=== PATIENT | male | born 1995 | race Two or more races ===

== ENCOUNTER 2017-11-28 08:08 | Emergency (ER) | payer OTHER ==
[2017-11-28 08:21] VITALS: BP 114/76
[2017-11-28] MEDS ORDERED: DEXAMETHASONE 10 MG/ML VIAL PO STA (08:23)
[2017-11-28] MEDS ORDERED: LORATADINE 10 MG TABLET PO STA (08:24)
[2017-11-28] MEDS ORDERED: CHERRY SYRUP 10 ML UDC PO ONE (08:27)
--- NOTE | 2017-11-28 08:33 | ED Physician Documentation ---
History of Present Illness - Stated complaint Stated Complaint: UPPER BODY RASH - Chief complaint Chief Complaint: Wound - Additonal information Additional information: hx from pt healthy 22 male seen for ear pain sore thorat swollen nodes and txed with amox X 5 days which he finsihed two days ago now with rash to neck torso arms and palms no oral lesions or swelling no travel no camping no tick bites no new food lotion soap detergent etc has PND otherwise feels better Review of Systems Constitutional: denies: Fever, Chills Ears: denies: Ear pain Nose: reports: Other (PND) Throat: denies: Sore throat Respiratory: denies: Cough GI: denies: Abdominal Pain Skin: reports: Rash PD PAST MEDICAL HISTORY - Present Medications Home Medications: Ambulatory Orders Medication Instructions Recorded Confirmed Loratadine [Claritin] 10 mg PO DAILY PRN #5 tablet 11/28/17 - Allergies Allergies/Adverse Reactions: Allergies Allergy/AdvReac Type Severity Reaction Status Date / Time No Known Drug Allergies Allergy Verified 11/28/17 08:21 PD ED PE NORMAL - Vitals Vital signs reviewed: Yes - HEENT HEENT: Ears normal, Moist mucous membranes, Pharynx benign (PND but no erythema or exudate, no oral lesions) - Neck Neck: Supple, no meningeal sign. No: No adenopathy (ant no posterior) - Cardiac Cardiac: RRR - Respiratory Respiratory: No respiratory distress, Clear bilaterally - Abdomen Abdomen: Non tender, No organomegaly - Derm Derm: Other (macular papular rash to neck and torso mostly less to arms, some lacy discoloration to palms, no petecchiae purpura vesicles or target lesions) Results - Vitals Vitals: Vital Signs - 24 hr 11/28/17 08:18 Temperature 36.4 C L Heart Rate 84 Respiratory 15 Rate Blood Pressure 114/76 O2 Saturation 97 Oxygen O2 Source Room air PD MEDICAL DECISION MAKING - ED course ED course: does not look like spsis, benoit lalo meningitis lyme leading ddx is 1) viral exanthem 2) drug rxn 3) had mono and txed amox and has subs rash tx same - symptomatic - Sepsis Event Vital Signs: Vital Signs - 24 hr 11/28/17 08:18 Temperature 36.4 C L Heart Rate 84 Respiratory 15 Rate Blood Pressure 114/76 O2 Saturation 97 Oxygen O2 Source Room air Departure - Departure Disposition: 01 Home, Self Care Clinical Impression: Rash Condition: Good Follow-Up: [facility] [Provider Group] Prescriptions: Loratadine [Claritin] 10 mg PO DAILY PRN #5 tablet PRN Reason: rash Comments: This rash does not look dangerous. I can not be certain if it is a reaction to the amoxicillin or a viral exanthem. Either way the treatment is symptomatic. I would be cautious using penicillins in the future as you might be allergic - perhaps [facility] could refer you for allergy testing Take the claritin once a day until better Return if worse
== END 2017-11-28 08:49 | disposition home or self-care (01) ==
LOC: ED 08:08
DX: R21 Rash and other nonspecific skin eruption (principal)
CPT/HCPCS: 99282; 99283; A9270

== ENCOUNTER 2020-06-27 17:58 | Emergency (ER) | payer OTHER ==
--- NOTE | 2020-06-27 18:21 | ED Physician Documentation ---
PD HPI CHEST PAIN - Stated complaint Stated Complaint: SOA - Chief complaint Chief Complaint: Resp - History obtained from History obtained from: Patient - Additional information Additional information: For the last month has had intermittent shortness of breath, sometimes with exertion, sometimes at rest or just relaxing on the couch. It is associated with intermittent difficulty swallowing. Its not that it is painful to swallow or he feels like anything gets stuck, rather that he just feels like swallowing takes more work than it should. Today has had substernal chest pressure and it started while lifting weights. He has no personal medical history or pertinent family medical history. When queried as to the possibility of depression he denied. Review of Systems Ten Systems: 10 systems reviewed and negative Constitutional: reports: Fatigue (Very fatigued taking naps every day.). denies: Fever, Chills Ears: denies: Loss of hearing, Ear pain Throat: denies: Dental pain / toothache, Sore throat Cardiac: reports: Chest pain / pressure. denies: Palpitations, Pedal edema, Calf pain Respiratory: reports: Dyspnea. denies: Cough, Hemoptysis, Wheezing PD PAST MEDICAL HISTORY - Present Medications Home Medications: Ambulatory Orders Medication Instructions Recorded Confirmed Loratadine [Claritin] 10 mg PO DAILY PRN #5 tablet 11/28/17 - Allergies Allergies/Adverse Reactions: Allergies Allergy/AdvReac Type Severity Reaction Status Date / Time No Known Drug Allergies Allergy Verified 11/28/17 08:21 - Social History Does the pt smoke?: No Smoking Status: Never smoker PD ED PE NORMAL - Vitals Vital signs reviewed: Yes - General General: Alert and oriented X 3, No acute distress - HEENT HEENT: PERRL, EOMI - Neck Neck: Supple, no meningeal sign, No bony TTP - Cardiac Cardiac: RRR, No murmur - Respiratory Respiratory: No respiratory distress, Clear bilaterally - Abdomen Abdomen: Non tender - Extremities Extremities: No edema, No calf tenderness / cord - Neuro Neuro: Alert and oriented X 3, Normal speech Results - Vitals Vitals: Vital Signs - 24 hr 06/27/20 06/27/20 06/27/20 18:07 19:05 19:16 Temperature 36.9 C 37.1 C Heart Rate 83 69 67 Respiratory 18 12 12 Rate Blood Pressure 141/75 H 120/78 120/78 O2 Saturation 100 100 100 Oxygen O2 Source Room air - EKG (time done) 1839 Rate: Rate (enter#) (70) Rhythm: NSR [place]: Normal Intervals: Normal [place] QRS: Normal Ischemia: Normal ST segments - Labs Labs: Laboratory Tests 06/27/20 06/27/20 06/27/20 18:25 18:25 18:25 WBC 9.7 RBC 5.13 Hgb 16.5 Hct 48.6 MCV 94.7 H MCH 32.2 H MCHC 34.0 RDW 12.1 Plt Count 229 MPV 11.3 Neut # (Auto) 5.5 Lymph # (Auto) 3.1 [place] # (Auto) 0.8 Eos # (Auto) 0.1 Baso # (Auto) 0.1 Absolute Nucleated RBC 0.00 Nucleated RBC % 0.0 Sodium 136 Potassium 3.8 Chloride 98 L Carbon Dioxide 28 Anion Gap 10.0 BUN 18 Creatinine 1.1 Estimated GFR (MDRD) 82 L Glucose 92 Calcium 9.8 Total Bilirubin 0.6 AST 35 ALT 43 Alkaline Phosphatase 73 Troponin I High Sens 3.1 Total Protein 8.2 Albumin 5.2 Globulin 3.0 Albumin/Globulin Ratio 1.7 Lipase 31 - Rads (name of study) 2v chest Radiology: EMP read contemporaneously (NAD) PD MEDICAL DECISION MAKING - ED course ED course: 25-year-old gentleman with a month worth of difficulty swallowing on and off shortness of breath, sometimes exertional sometimes not, and chest pain today. Heart score 0. PERC negative. Frankly sounds GI in origin and discussed need for follow-up for possible upper endoscopy. Departure - Departure Disposition: 01 Home, Self Care Clinical Impression: Chest pain Qualifiers: Chest pain type: chest pain on breathing Qualified Code(s): R07.1 - Chest pain on breathing Condition: Good Record reviewed to determine appropriate education?: Yes Instructions: ED Chest Pain NonCardiac Follow-Up: [facility] [Provider Group] (Call for primary care) [facility] [Provider Group] (Call for primary care) Merlin Florez MD [Provider Admit Priv/Credential] - (Call for eval for upper endoscopy) Comments: Chest x-ray and lab work tonight are normal, there is no evidence of heart problem or active lung issue. I do think you need more testing done, the next test I think would be an upper endoscopy. For that you should follow-up with a surgeon or migratory worker, 1 is listed on this form. Also would be ideal to follow-up with your primary care physician for coordination of care. Return for new or worsening symptoms. Discharge Date/Time: 06/27/20 19:18
[2020-06-27 18:31] LABS: BASOPHILS # (AUTO) 0.1 10^3/uL (0.0-0.1); BASOPHILS % (AUTO) 0.8 %; EOSINOPHILS # (AUTO) 0.1 10^3/uL (0.0-0.7); EOSINOPHILS % (AUTO) 1.1 %; HCT - HEMATOCRIT 48.6 % (42.0-52.0); HGB - HEMOGLOBIN 16.5 g/dL (14.0-18.0); LYMPHOCYTES # (AUTO) 3.1 10^3/uL (1.5-3.5); LYMPHOCYTES % (AUTO) 32.1 %; MEAN CORPUSCULAR HEMOGLOBIN 32.2 pg (27.0-31.0); MEAN CORPUSCULAR VOLUME 94.7 fL (80.0-94.0); MEAN PLATELET VOLUME 11.3 fL (7.4-11.4); MONOCYTES # (AUTO) 0.8 10^3/uL (0.0-1.0); MONOCYTES % (AUTO) 8.5 %; NEUTROPHILS # (AUTO) 5.5 10^3/uL (1.5-6.6); NEUTROPHILS % (AUTO) 56.9 %; PLT - PLATELET COUNT 229 10^3/uL (130-450); RED BLOOD COUNT 5.13 10^6/uL (4.70-6.10); RED CELL DISTRIBUTION WIDTH 12.1 % (12.0-15.0); WHITE BLOOD COUNT 9.7 x10^3/uL (4.8-10.8)
--- NOTE | 2020-06-27 18:43 | XRAY Report ---
PROCEDURE: Chest 2 View X-Ray INDICATIONS: chest pain dypnea TECHNIQUE: 2 view(s) of the chest. COMPARISON: None. FINDINGS: Surgical changes and devices: None. Lungs and pleura: No pleural effusions or pneumothorax. Lungs are clear. Mediastinum: Mediastinal contours are normal. Heart size is normal. Bones and chest wall: No suspicious bony abnormalities. Soft tissues appear unremarkable. IMPRESSION: Normal for age, source of current symptoms is not seen. Reviewed by: Mio Ragland MD on 06/27/2020 6:42 PM PDT Approved by: Mio Ragladn MD on 06/27/2020 6:42 PM PDT Station ID: [id number]
[2020-06-27 18:55] LABS: ALBUMIN 5.2 g/dL (3.2-5.5); ALBUMIN/GLOBULIN RATIO 1.7 (1.0-2.2); BILIRUBIN,TOTAL 0.6 mg/dL (0.2-1.0); CALCIUM 9.8 mg/dL (8.5-10.3); CREATININE 1.1 mg/dL (0.6-1.2); POTASSIUM 3.8 mmol/L (3.5-5.0); TOTAL PROTEIN 8.2 g/dL (6.7-8.2)
[2020-06-27 19:05] VITALS: BP 120/78
== END 2020-06-27 19:18 | disposition home or self-care (01) ==
LOC: ED 17:58
DX: R07.1 Chest pain on breathing (principal)
CPT/HCPCS: 36415; 80053; 83690; 84484; 85025; 93005; 99284

== ENCOUNTER 2020-08-22 08:38 | Outpatient (CLI) | payer OTHER | END 2020-08-22 08:39 | disposition home or self-care (01) | LOC: LAB.N 08:38 | PROVIDERS: ATTEND Physician Assistant Medical | DX: R07.9 Chest pain, unspecified (principal); Z53.9 Procedure and treatment not carried out, unspecified reason ==

== ENCOUNTER 2020-10-12 00:22 | Emergency (ER) | payer OTHER ==
--- NOTE | 2020-10-12 01:33 | ED Physician Documentation ---
History of Present Illness - Stated complaint Stated Complaint: WHEEZING/COUGH - Chief complaint Chief Complaint: Resp - History obtained from History obtained from: Patient - Additonal information Additional information: 25-year-old man with 4-month history of subjective shortness of breath presents with persistent symptoms today along with episode of dizziness and difficulty swallowing with associated headache today. Also with substernal chest tightness that is 6 out of 10 pain, aching, gradual in onset, occurring today and persisted in the emergency department, nonpleuritic without any exacerbating or relieving symptoms. Usually 8 at its worst. Patient states that he was diagnosed with anxiety but does not feel anxious and has no improvement with Valium. He has seen multiple doctors and quit smoking marijuana due to the symptoms. PERC negative. not vaccinated against covid-19. Review of Systems Ten Systems: 10 systems reviewed and negative Constitutional: denies: Fever, Chills Cardiac: reports: Chest pain / pressure. denies: Calf pain Respiratory: reports: Dyspnea, Cough (nonproductive cough). denies: Hemoptysis, Wheezing Neurologic: reports: Headache, Other (dizziness) PD PAST MEDICAL HISTORY - Past Medical History Past Medical History: No - Past Surgical History Past Surgical History: No - Present Medications Home Medications: Ambulatory Orders Medication Instructions Recorded Confirmed diazePAM [Valium] 10 mg PO DAILY PRN 10/12/20 10/12/20 - Allergies Allergies/Adverse Reactions: Allergies Allergy/AdvReac Type Severity Reaction Status Date / Time No Known Drug Allergies Allergy Verified 10/12/20 00:36 - Social History Does the pt smoke?: No Smoking Status: Former smoker Does the pt drink ETOH?: No Does the pt have substance abuse?: No - Immunizations Immunizations are current?: Yes - POLST Patient has POLST: No PD ED PE NORMAL - Vitals Vital signs reviewed: Yes - General General: Alert and oriented X 3, No acute distress, Well developed/nourished - HEENT HEENT: Atraumatic, PERRL, EOMI - Neck Neck: Supple, no meningeal sign - Cardiac Cardiac: RRR, No murmur, No gallop, No rub - Respiratory Respiratory: No respiratory distress, Clear bilaterally - Abdomen Abdomen: Non tender, Non distended - Derm Derm: Normal color, Warm and dry - Extremities Extremities: No deformity - Neuro Neuro: Alert and oriented X 3 - Psych Psych: Normal mood, Normal affect Results - Vitals Vitals: Vital Signs - 24 hr 10/12/20 10/12/20 10/12/20 00:25 01:31 01:41 Temperature 36.4 C L Heart Rate 77 64 65 Respiratory 18 18 16 Rate Blood Pressure 143/85 H 121/82 H 127/85 H O2 Saturation 98 99 98 Oxygen O2 Source Room air - EKG (time done) 0135 Rate: Rate (enter#) (61) Rhythm: NSR [place]: Normal Intervals: Normal [place] QRS: Normal Ischemia: Normal ST segments Computer interpretation: Agree with computer PD MEDICAL DECISION MAKING - ED course ED course: 25-year-old man with recent diagnosis of acute anxiety on Valium, presents with shortness of breath for the past 4 months, worsening today with associated headache, dizziness, nonproductive cough. His vital signs, physical exam, chest x-ray, and EKG are all normal in the emergency department. he is PERC negative. I discussed with him that there appears to be no emergent etiology going on and he will need to follow-up with his primary doctor in regards to his symptoms. Return precautions given. Departure - Departure Clinical Impression: Shortness of breath, Cough Condition: Good Instructions: ED Dyspnea Shortness of Breath Comments: You were seen in the emergency department for shortness of breath of unknown origin. Your vital signs, physical exam, chest x-ray, EKG, were all normal. You should follow-up with your primary doctor in regards to your symptoms for further evaluation and return to the emergency department if you have any new or worsening symptoms or other concerns. Please get the COVID-19 vaccine as soon as possible to protect yourself and others.
[2020-10-12 01:44] VITALS: BP 127/85
--- NOTE | 2020-10-12 07:59 | XRAY Report ---
PROCEDURE: Chest 2 View X-Ray INDICATIONS: soa X 4 months TECHNIQUE: 2 view(s) of the chest. COMPARISON: 06/27/2020 FINDINGS: Surgical changes and devices: None. Lungs and pleura: No pleural effusions or pneumothorax. Lungs are clear. Mediastinum: Mediastinal contours are normal. Heart size is normal. Bones and chest wall: No suspicious bony abnormalities. Soft tissues appear unremarkable. IMPRESSION: No acute finding. No significant change from pulmonary report. Reviewed by: Steve Condon MD on 10/12/2020 7:58 AM PDT Approved by: Steve Condon MD on 10/12/2020 7:58 AM PDT Station ID: [id number]
== END 2020-10-12 02:00 | disposition home or self-care (01) ==
LOC: ED 00:22
DX: R06.00 Dyspnea, unspecified (principal); Z87.891 Personal history of nicotine dependence; F41.9 Anxiety disorder, unspecified; R05 Cough
CPT/HCPCS: 93005; 99282; 99283